=== PATIENT | female | born 1950 | race Asian ===

== ENCOUNTER 2017-03-28 06:08 | Emergency (ER) | payer OTHER ==
[~2017-03-28] VITALS: Ht 157.5 cm; Wt 114.9 kg
[2017-03-28 06:14] VITALS: Ht 157.5 cm; Wt 114.9 kg
--- NOTE | 2017-03-28 08:07 | ERD ---
ER Documentation Chief Complaint Chief Complaint headache x6 days, on and off. Hx: HTN, pre DM, high cholesterol HPI This is a 67-year-old female with known history of [id number] diabetes mellitus and hypertension. The patient presents to the emergency department complaining of a unilateral pulsating right-sided headache for the past 6 days. The headache has been intermittent and she states this is not the worst headache of her life. Headache is localized to the frontal right region with no radiation to the posterior aspect of the head. She indicates that she is also been experiencing unilateral right-sided facial muscle spasms with severe pain. She describes the facial pain as paroxysms of electric shock like stabbing pain. The paroxysms of the right-sided electric-like shooting pain will last for roughly 1 minute, be severe in intensity, and then spontaneously resolved. She states that there is no alleviating or exacerbating factors to the facial pain and she has had roughly 5 attacks in the past 24 hours which prompted her to come to the emergency department to be further evaluated. She denies any blunt or penetrating head or facial trauma. She denies any ocular pain and no changes in vision. She has had similar symptoms in the past roughly 20 years ago when she had an diagnosis of trigeminal neuralgia that was treated with Neurontin and spontaneously resolved. She denies any neck pain. She has no fevers no shaking or chills. She states that the facial pain does not awaken her at night. She denies any rashes. She has no shortness of breath at rest or exertion. Has any chest pain or pressure that radiates the neck arm back or jaw. ROS All systems reviewed and are negative except as per history of present illness. PMhx/Soc Hx Neurological Disorder: Yes (LOPEZ X1 WEEK. ) Hx Alcohol Use: No Hx Substance Use: No Hx Tobacco Use: No Smoking Status: Never smoker Physical Exam Vitals Vital Signs Date Time Temp Pulse Resp B/P Pulse Ox O2 Delivery O2 Flow Rate FiO2 03/28/17 06:14 97.3 84 24 164/83 97 Physical Exam Constitutional:Well-developed. Well-nourished. HEENT:Normocephalic. Atraumatic.Pupils were equal round reactive to light. Moist mucous membranes.No tonsillar exudates. Funduscopy exam shows sharp optic disks and venous pulsations are present Neck: No nuchal rigidity. No lymphadenopathy. No posterior cervical spine tenderness or step-offs. Respiratory: Not using accessory muscles of respiration.Lungs were clear to auscultation bilaterally. No rhonchi. No rales. No wheezing. Cardiovascular: Regular rate regular rhythm.No murmurs. No rubs were appreciated.S1, S2 normal. Distal pulses are palpable 2+ bilaterally. GI: Abdomen was soft. Nontender. Non Distended. No pulsatile abdominal masses or bruits. No rebound. No guarding. Bowel sounds were present and normal. Muscle skeletal: Full range of motion of both the upper and lower extremities bilaterally.Normal muscle tone.No assymetrical calf tenderness or swelling. Skin: No petechia, no purpura. No lesions on the palms or the soles of the feet. No maculopapular rash. No unilateral dermatomal rash distribution present on the face NEURO: Patient was alert, awake, orientated x3.No facial droop. Gait observed and normal with no ataxia.Speech had regular rate and rhythm. No focal neurological deficits. Procedures/MDM The patient presented to the emergency department with an acute single headache that presented within hours of onset my differential diagnosis included but was not limited to meningitis, SAH, intracerebral hemorrhage, hypertensive encephalopathy, cranial artery dissection, cerebral venous sinus thrombosis, traumatic, acute sinusitis. The patient has no ocular symptoms to suggest temporal neuritis, acute narrow-angle glaucoma or pituitary apoplexy. The patient did not appear to have a toxic or metabolic etiology such as fever, hypoglycemia, high-altitude disease or carbon monoxide poisoning. This was not the patients worse headache of their life. The patient had a complete neurologic and fundoscopic exam performed by myself that was normal with no focal neurological deficits or retinal hemorrhage. The patient stated this headache was not severe or distinct from other headaches and the history with the physical exam findings did not likely suggest SAH. Therefore, I did not feel it was clinically necessary to perform a lumbar puncture and CSF analysis. I did obtain a CT scan of the patient's head which showed no acute intracerebral hemorrhage mass-effect or midline shift. Given the patient's symptoms and clinical findings of right-sided frontal headache and facial pain that was limited to the V1 ophthalmic division in V2 maxillary nerve distribution of the trigeminal nerve with no other obvious cause such as herpes zoster or trigeminal nerve trauma I did feel the patient's symptoms were likely result of trigeminal neuralgia. The patient had no dental trauma or involvement of the mandibular nerve distribution. She had no clinically evident neurological deficit. The patient was refusing analgesic medication in the emergency department and she had taken Tylenol prior to arrival which improved but did not completely resolve sharp shooting-like pain. I will send the patient home with a prescription of carbamazepine for controlling the patient's pain. She was instructed on the adverse effects including drowsiness dizziness nausea and vomiting. The patient was discharged home in fair condition. They were instructed to return to the emergency department at any time if there was any worsening of their condition. The patient stated they would follow up with their PCP in the next 24-48 hours to initiate a suitable medication regimen under the care of their PCP as well as to allow their PCP to monitor any drug reactions. The patient was discharged home with prescriptions after they gave informed consent to the new medication. They were also fully informed by myself on the adverse effects and adverse drug interactions in order to provide adequate safeguards to prevent possible adverse reactions to medications. Departure Diagnosis: Primary Impression: Trigeminal neuralgia of right side of face Condition: BRAD Giang Mar 28, 2017 08:06
[2017-03-28] MEDS ORDERED: CARB100T2 PO (08:09)
--- NOTE | 2017-03-28 08:30 | RADRPT ---
PROCEDURE: CT Brain without contrast. CLINICAL INDICATION: Headache x 6 days TECHNIQUE: A CT of the brain was performed utilizing axial imaging from the skull base through the vertex without intravenous contrast. Multiplanar reformatted images were made.The CTDIvol is 43.05 mGy and the DLP is 720.23 mGycm. One or more the following dose reduction techniques were utilized: Automated exposure control, adjus tment of the mA and / or kV according to patient's size, or use of iterative reconstruction techniqu e. COMPARISON: None. FINDINGS: There is no intracranial hemorrhage, mass effect, or midline shift. No extra-axial fluid collection is seen. Mild atrophy is identified with compensatory ventricular and sulcal enlargement. Mild to moderate decreased attenuation is seen in the periventricular and deep white matter, compatible wit h microvascular ischemic disease. The tyson white matter differentiation is well preserved with no ac jeannette infarct detected. The osseous structures and visualized paranasal sinuses are unremarkable. Art erial calcification. IMPRESSION: 1. No evidence of acute intracranial pathology. 2. Mild diffuse atrophy. 3. There is mild to moderate microvascular ischemic disease in the periventricular and deep white m atter. RPTAT: HJES .Vikas Perry MD, MD Date Time Electronically viewed and signed by .Vikas Perry MD, on 03/28/2017 08:30 .S/
== END 2017-03-28 09:15 | disposition home or self-care (01) ==
LOC: E/R 06:08
DX: G50.0 Trigeminal neuralgia (principal); I10 Essential (primary) hypertension; E11.9 Type 2 diabetes mellitus without complications
CPT/HCPCS: 70450